=== PATIENT | male | born 1980 | race Two or more races ===

== ENCOUNTER 2020-04-26 12:52 | Emergency (ER) | payer OTHER ==
[~2020-04-26] VITALS: Ht 177.8 cm; Wt 72.6 kg
[2020-04-26] MEDS ORDERED: KETO10TA2 PO (16:19)
[2020-04-26] MEDS ORDERED: SKELAXIN800 MG PO (16:19)
== END 2020-04-26 16:24 | disposition home or self-care (01) ==
LOC: ER 12:52
DX: M62.830 Muscle spasm of back (principal); M54.2 Cervicalgia

== ENCOUNTER 2020-09-04 19:43 | Emergency (ER) | payer OTHER ==
[~2020-09-04] VITALS: Ht 175.3 cm; Wt 77.1 kg
[~2020-09-04 19:43] MED LIST: KETO10TA2 PO; SKELAXIN800 MG PO
[2020-09-04] MEDS ORDERED: MEDROLPACK PO (21:52)
== END 2020-09-04 22:06 | disposition home or self-care (01) ==
LOC: ER 19:43
DX: R13.19 Other dysphagia (principal)

== ENCOUNTER 2020-10-20 18:13 | Emergency (ER) | payer OTHER ==
[~2020-10-20] VITALS: Ht 175.3 cm; Wt 80.7 kg
[~2020-10-20 18:13] MED LIST changes: +MEDROLPACK PO
== END 2020-10-20 22:48 | disposition home or self-care (01) ==
LOC: ER 18:13
DX: M25.562 Pain in left knee (principal)